=== PATIENT | male | born 1950 | race Caucasian/White ===

== ENCOUNTER → 2018-01-07 11:32 | Outpatient (CLI) | payer MEDICARE, SELFPAY ==
[2018-01-07 12:11] LABS: PSA,Total - Annual Screen 2.73 ng/mL (0.00-4.00)
== END ==
PROVIDERS: Family Provider Internal Medicine; PCP Internal Medicine; Visit Provider Urology
DX: Z12.5 Encounter for screening for malignant neoplasm of prostate (principal)
CPT/HCPCS: 36415; 84153; G0103

== ENCOUNTER → 2018-02-18 08:24 | Outpatient (CLI) | payer MEDICARE, SELFPAY | PROVIDERS: Family Provider Internal Medicine; PCP Internal Medicine; Visit Provider Urology | DX: R82.99 Other abnormal findings in urine (principal) | CPT/HCPCS: 87086; 87088 ==

== ENCOUNTER → 2019-02-05 09:47 | Outpatient (CLI) | payer MEDICARE, SELFPAY ==
[2019-02-05 11:33] LABS: PSA,Total - Annual Screen 4.06 ng/mL (0.00-4.00)
== END ==
PROVIDERS: Family Provider Internal Medicine; PCP Internal Medicine; Referring Provider Urology; Visit Provider Urology
DX: Z12.5 Encounter for screening for malignant neoplasm of prostate (principal)
CPT/HCPCS: 36415; 84153; G0103

== ENCOUNTER → 2019-08-17 15:09 | Outpatient (CLI) | payer MEDICARE, SELFPAY ==
[2015-09-22 06:12] VITALS: BMI 28.3
[2019-08-17 16:26] LABS: PSA,Total- Diagnostic 5.16 ng/mL (0.0-4.0)
== END ==
PROVIDERS: PCP Internal Medicine; Referring Provider Urology; Visit Provider Urology
DX: R97.20 Elevated prostate specific antigen [PSA] (principal)
CPT/HCPCS: 36415; 84153

== ENCOUNTER → 2019-10-20 08:55 | Outpatient (CLI) | payer MEDICARE, SELFPAY ==
[2015-09-22 06:12] VITALS: BMI 28.3
[2019-10-20 09:55] LABS: PSA,Total- Diagnostic 4.85 ng/mL (0.0-4.0)
== END ==
PROVIDERS: PCP Internal Medicine; Visit Provider Urology
DX: R97.20 Elevated prostate specific antigen [PSA] (principal)
CPT/HCPCS: 36415; 84153

== ENCOUNTER → 2020-05-05 16:00 | Outpatient (CLI) | payer MEDICARE, SELFPAY ==
[2015-09-22 06:12] VITALS: BMI 28.3
[2020-05-05 16:58] LABS: PSA,Total - Annual Screen 4.88 ng/mL (0.00-4.00)
== END ==
PROVIDERS: PCP Internal Medicine; Referring Provider Urology; Visit Provider Urology
DX: R97.20 Elevated prostate specific antigen [PSA] (principal)
CPT/HCPCS: 36415; 84153; G0103

== ENCOUNTER 2020-09-27 16:34 | Emergency (ER) | payer MEDICARE, SELFPAY ==
[2020-09-27 16:35] VITALS: BP 139/87; PULSE 86; RESP 18; TEMP 37.3; O2SAT 97; BMI 32.5
[2020-09-27 17:06] VITALS: BP 139/87; PULSE 86; RESP 18; TEMP 37.3; O2SAT 97
[2020-09-27 17:07] LABS: Absolute Lymphocyte Count 0.64 X10^3/uL (0.83-4.51); Absolute Neutrophil Count 13.7 X10^3/uL (2.0-7.7); Basophil# 0.04 X10^3/uL; Basophil% 0.3 % (0-1); Eosinophil# 0.04 X10^3/uL; Eosinophils% 0.3 % (0-5); Hemoglobin 14.7 g/dL (13.0-16.5); Lymphocyte # 0.64 X10^3/ul (4.0); Lymphocyte % 4.1 % (19-41); Mean Corp Hgb Conc 33.4 g/dL (32-36); Mean Corpuscular Hgb 31.3 pg (27.0-32.0); Mean Corpuscular Volume 93.8 fL (80-94); Mean Platelet Vol. 9.4 fl (6.2-12.0); Monocyte% 8.2 % (0-10); NRBC Flagged by Analyzer 0 % (0-5); Neutrophil % 86.7 % (47-70); Platelet Count 146 K/mm3 (150-450); RBC Distribution Width CV 12.9 % (11.6-14.6); RBC Distribution Width SD 44.5 fl (35.1-43.9); Red Blood Count 4.69 M/mm3 (4.6-6.2); White Blood Count 15.8 K/mm3 (4.4-11.0)
[2020-09-27] MEDS: 0.9% Normal Saline 1,000 ML 150 ML IV (17:17)
[2020-09-27] MEDS: 0.9% Normal Saline 1,000 ML 1000 ML IV (17:17)
--- NOTE | 2020-09-27 17:19 | ED.VIS.GEN ---
History of Present Illness Chief Complaint: Complaint Informant: Patient Onset: Days Maximum Severity: Mild Narrative: Patient complains of urinary frequency for the last 3 to 4 days, he has history of same related prostate disorder he is on Flomax other meds to help his urinary stream he reports he is frequently urinating he has had no fever no cough no back pain, has been seen by urology for this he has been told he has an enlarged prostate as has been decided to treat him conservatively and to try to avoid surgery. He has no back pain fever URI symptoms no coronavirus exposures, at times when he is had this is been related to UTI he is usually treated either Cipro or Augmentin, as he recalls, he is never required for the catheter or had urinary retention he is seen by [facility] Past Medical History - Allergies and Home Meds Allergies/Adverse Reactions: Allergies codeine Adverse Reaction (Verified 09/27/20 16:36) Nausea/Vom/Diarrhea Primary Care Physician: Claire Guo MD [Primary Care Provider] - Past Medical History: - - Includes as above Smoking Status: Former smoker Physical Exam Vital Signs/Narrative: Vital Signs Temp Pulse Resp BP Pulse Ox 09/27/20 17:06 99.1 F 86 18 139/87 H 97 09/27/20 16:35 99.1 F 86 18 139/87 H 97 General: Well nourished, Well developed, No Acute Distress Head: Normocephalic, Atraumatic Eyes: Perrl, EOMI ENT: Moist mucous membranes, No rhinorrhea Neck: Supple, Nontender Cardiovascular: Regular rate, Regular rhythm, No murmurs Respiratory: No distress, CTA bilaterally, Chest nontender Abdomen: Soft, Nontender, Nondistended, Normal bowel sounds Back: Nontender, Normal Inspection Extremities: Nontender, No edema Skin: Normal color, No rash Neurological: Alert, Oriented x3, Cranial nerves II-XII grossly intact, Normal Strength, Normal Sensation Psychological: Normal affect, Normal Mood Diagnostic/Tx/Re-eval - Medical Decision Making Patient's abdomen is very soft and nontender his exam shows no areas of pain or lesions or drainage his back is unremarkable clinically looks well given all the above ED evaluation UA post void residual bladder scan, your urine culture labs Patient's ED screening evaluation shows a white count of 15 UA that shows signs of UTI urine culture sent, no clinical signs of retention discussed Neves catheter with the patient he does not wish to proceed with that as he is never required with the past we discussed inpatient versus outpatient management he wants to go home he was given 1 g Rocephin after urine cultures obtained, he will be started on Augmentin she has had before for this condition he will follow-up with his urologist and family physician return for change in symptoms, the patient indicates he is eating and drinking well executing all of his daily activities and just has the constant urinary frequency will also provide Pyridium, he has no signs of systemic toxicity Home stable declined admission Final impression urinary tract infection ED Disposition - Plan for ED Patient: Diagnosis: UTI (urinary tract infection) Instructions: ED Bladder Infection, Male (Adult) Prescriptions: Amox/Clavulanate Tablet [Augmentin Tablet] 875 mg PO Q12H #20 tab Prescription Printed Phenazopyridine HCl [Pyridium] 200 mg PO BID PRN PRN #10 tablet PRN Reason: Pain Prescription Printed Referrals: Claire Guo MD [Primary Care Provider] - Anastacio Wallis MD [STAFF PHYSICIAN] -
[2020-09-27 17:32] LABS: Anion Gap 4 (5-15); BUN 16 mg/dL (7-18); BUN/Creat Ratio 11.4 RATIO (10-20); Chloride 107 mmol/L (98-107); EST Glomerular Filtration Rate 53 mL/min (>60); Est Glom Filt Rate - Afr Amer 64 mL/min (>60); Glucose 101 mg/dL (74-106); Potassium 3.9 mmol/L (3.5-5.1); Sodium Level 139 mmol/L (136-145)
[2020-09-27 18:00] VITALS: BP 135/86; PULSE 76; RESP 15; TEMP 37.5; O2SAT 96
[2020-09-27 18:31] LABS: Mucous, Urine 0 SEEN /hpf (<or=2+)
[2020-09-27 18:41] LABS: Color, Urine Yellow (Yellow); Glucose, Dipstick Normal (Normal); Ketone-Dipstick Negative (Negative); Leukocyte Esterase-Dipstick 500 /ul (Negative); Nitrite-Dipstick Positive (Negative); Occult Blood-Urine 10 /ul (Negative); Protein-Dipstick Negative (Negative); Specific Gravity, Urine 1.015 (1.002-1.030); Urine Bilirubin Dipstick Negative (Negative); Urine Clarity Sl. Cloudy (Clear); Urine Urobilinogen Normal (Normal)
[2020-09-27] MEDS: Ceftriaxone 1 GM/50 ML BAG IV (18:45)
[2020-09-27 19:00] LABS: Amorphous Sediment 1+ URATE; Bacteria 1+ /hpf (None Seen); Red Blood Cells-Urine 0-5 SEEN /hpf (0-5); Squamous Epithelial Cells - UA 0-5 SEEN /hpf (0-5); White Blood Cells 25-50 SEEN /hpf (0-5)
[2020-09-27] MEDS: Amox/Clavulanate 875 MG Tablet PO (19:39)
== END 2020-09-27 19:43 | disposition home or self-care (01) ==
PROVIDERS: Emergency Provider Emergency Medicine; PCP Internal Medicine
DX: N39.0 Urinary tract infection, site not specified (principal); Z87.891 Personal history of nicotine dependence; Z88.5 Allergy status to narcotic agent
CPT/HCPCS: 80048; 81001; 85025; 87077; 87086; 87088; 87186; 99283; J7030; A4216

== ENCOUNTER → 2021-10-26 | Outpatient (CLI) | payer MEDICARE, SELFPAY ==
[2021-10-26 10:07] LABS: PSA,Total- Diagnostic 2.51 ng/mL (0.0-4.0)
== END | disposition home or self-care (01) ==
PROVIDERS: PCP Internal Medicine; Referring Provider Urology; Visit Provider Urology
DX: N40.1 Benign prostatic hyperplasia with lower urinary tract symptoms (principal)
CPT/HCPCS: 36415; 84153

== ENCOUNTER 2022-02-22 18:12 | Emergency (ER) | payer MEDICARE, SELFPAY ==
[2022-02-22 18:14] VITALS: BP 149/87; PULSE 59; RESP 14; TEMP 36.4; O2SAT 98; BMI 31.0
--- NOTE | 2022-02-22 19:07 | EX.ED.UPPERE ---
HPI History of Present Illness Chief Complaint: Upper Extremity Injury Detail of Chief Complaint: Crush injury left little finger Informant: patient Occured/Mechanism Mechanism/Context: Yes injury and Yes blunt trauma Onset/Context/Timing Onset: Today (1699) Context: Sudden Onset Timing: Continuous Quality of Pain: Dull and Aching Location: Left little finger Current Severity: Mild Maximum Severity: Moderate Worsened by: Palpation Relieved by: Rest Associated Symptoms Associated Symptoms: Negative for Parasthesia, Weakness or Loss of Funtion Narrative Narrative: Patient is a 71-year-old lxlbg-vnzh-sezvadgy male who presents with crush injury to his left little finger. Tetanus is unknown. He denies paresthesia, anesthesia or motor weakness. He is not on an anticoagulant. Tetanus Immunization: Unknown Prior similar symptoms: No Recent Illness/Hospitalization: No [facility] Medical History Hyperlipemia Sleep apnea Home Medications methylphenidate HCl 20 mg tablet (Ritalin) 20 mg PO DAILY 09/03/15 [History Last Taken Unknown] uqmcqxqpgorf-ahrzxucn-gscdtt tablet (Multivitamin 50 Plus tablet) 1 ea PO DAILY 09/03/15 [History Last Taken Unknown] tamsulosin 0.4 mg capsule 0.4 mg PO DAILY 09/03/15 [History Last Taken Unknown] cetirizine 10 mg tablet (Zyrtec) 10 mg PO DAILY 02/22/22 [History Last Taken Unknown] ferrous sulfate 325 mg (65 mg iron) tablet (iron) 325 mg PO DAILY 02/22/22 [History Last Taken Unknown] rosuvastatin 5 mg tablet 5 mg PO DAILY 02/22/22 [History Last Taken Unknown] Allergy/AdvReac Type Severity Reaction Status Date / Time codeine AdvReac Nausea/Vom/ Verified 02/22/22 18:13 Diarrhea Surgical History History of cholecystectomy History of tonsillectomy Social History (Updated 02/22/22 @ 19:[address] Luis Horner MD) household members: spouse Smoking Status: Never smoker substance use type: does not use ROS ROS ED Musculoskeletal Musculoskeletal: Denies back pain, myalgias or neck pain Integumentary Reports other Details: Laceration ulnar side of nail over the distal phalanx left little finger ; Denies Abrasions or rash Neurologic Neurologic: Denies paresthesias or weakness Hematologic/Lymphatic Hematologic/Lymphatic: Denies easy bleeding or easy bruising EXAM Physical Exam Const Vital Signs: 02/22/22 18:14 Temperature 97.6 F L Temperature Source Temporal Pulse Rate 59 L Respiratory Rate 14 Blood Pressure 149/87 H Blood Pressure Mean 107 Pulse Ox 98 Oxygen Delivery Method Room Air Positive well nourished and well developed General Appearance ED: well developed and NAD; Negative for cyanotic or diaphoretic HEENT Reports moist mucous membranes normocephalic and atraumatic Eyes PERRL and EOMs intact bilaterally Resp normal respiratory effort Cardio regular rate and regular rhythm Extremity Extremity Narrative: There is a 2 cm laceration ulnar side of the nail on the dorsal surface of the left little finger. The extensor minimized tendons intact. The flexor digitorum superficialis and flexor digitorum profundus are intact. Patient does have a subungual hematoma with spontaneous drainage. Cap refill is normal. Sensation is normal. Neuro oriented x3 and CN's II-XII intact bilaterally Neuro Narrative: Median, radial and ulnar function intact. Sensorium / Orientation: alert Skin Skin Narrative: Laceration as previously described MDM MDM MDM Narrative Medical decision making narrative: Will obtain x-ray to rule out fracture. Tetanus was updated. Repair of the laceration after x-ray has been obtained and available for review Radiography Diagnostic Testing: Three-view x-ray of the left index finger was independently reviewed and interpreted by me as negative for fracture or foreign body. Procedures Other Procedures Procedure(s): Laceration repair: Patient's digit was anesthetized by digital block. 3 cc of 1% lidocaine without epinephrine was infiltrated. The wound was irrigated with 200 cc of normal saline. Using 5-0 Ethilon 3 simple interrupted sutures were placed with good cosmesis hemostasis. Patient was discharged home with appropriate home-going instructions. Discharge Plan Triage Chief Complaint: Upper Extremity Injury ED Provider: Luis Horner Dx/Rx/DC Orders Clinical Impression: Laceration of left little finger, Subungual hematoma of fingernail, Crushing injury of finger of left hand Instructions: Subungual Hematoma, ED Laceration, Hand: All Closures Prescriptions: No Action methylphenidate HCl [Ritalin] 20 MG tablet 20 mg PO DAILY tamsulosin 0.4 MG capsule 0.4 mg PO DAILY Multivitamin 50 Plus 1 EACH tablet 1 ea PO DAILY cetirizine [Zyrtec] 10 mg Tablet 10 mg PO DAILY ferrous sulfate [iron] 325 mg (65 mg iron) Tablet 325 mg PO DAILY rosuvastatin 5 mg tablet 5 mg PO DAILY Primary Care Provider: Claire Guo Referrals: Claire Guo MD [Primary Care Provider] - 10 Day for suture removal Disposition Disposition: Home, Self Care
--- NOTE | 2022-02-22 19:10 | RAD_ITS ---
EXAM: XR LEFT FINGERS, 2 OR MORE VIEWS CLINICAL INDICATION: Injury/Pain -- Little finger TECHNIQUE: Frontal, lateral and oblique views of the fingers of the left hand. This report was created using Related Content Database (RCDb) report LogRhythm technology. COMPARISON: None. FINDINGS: BONES/JOINTS: Unremarkable. No acute fracture. No subluxation. Normal alignment. Preservation of the joint space. No sclerotic or destructive changes observed. SOFT TISSUES: Unremarkable. No soft tissue swelling or gas. No radiopaque foreign body. RAD/Finger(s) Min 2 Views IMPRESSION: Negative x-rays of the visualized left fingers. Electronically Signed: Neel Fontaine MD at 19:38 EDT ,
[2022-02-22] MEDS: Diphth,Pertuss(Acell),Tet Vac 0.5 ML Vial IM (19:31)
[2022-02-22] MEDS: Lidocaine 1% (20 ml mdv) 20 ML Vial INFILT (20:09)
== END 2022-02-22 20:28 | disposition home or self-care (01) ==
PROVIDERS: Emergency Provider Emergency Medicine; PCP Internal Medicine; Visit Provider Emergency Medicine
DX: S61.217A Laceration without foreign body of left little finger without damage to nail, initial encounter (principal); E78.5 Hyperlipidemia, unspecified; S60.10XA Contusion of unspecified finger with damage to nail, initial encounter; W23.0XXA Caught, crushed, jammed, or pinched between moving objects, initial encounter; Z23 Encounter for immunization
CPT/HCPCS: 12001; 73140; 90471; 90715; 99283

== ENCOUNTER → 2022-10-29 | Outpatient (CLI) | payer MEDICARE, SELFPAY | END | disposition home or self-care (01) | PROVIDERS: PCP Internal Medicine; Referring Provider Urology; Visit Provider Urology | DX: Z12.5 Encounter for screening for malignant neoplasm of prostate (principal); N30.00 Acute cystitis without hematuria; N40.1 Benign prostatic hyperplasia with lower urinary tract symptoms | CPT/HCPCS: 36415; 84153 ==

== ENCOUNTER → 2023-11-14 | Outpatient (CLI) | payer MEDICARE, SELFPAY ==
[2023-11-14 10:21] LABS: PSA,Total- Diagnostic 2.94 ng/mL (0.0-4.0)
== END | disposition home or self-care (01) ==
PROVIDERS: PCP Internal Medicine; Visit Provider Urology
DX: R97.20 Elevated prostate specific antigen [PSA] (principal)
CPT/HCPCS: 36415; 84153

== ENCOUNTER 2024-01-30 19:17 | Emergency (ER) | payer MEDICARE, SELFPAY ==
[2024-01-30 19:17] VITALS: BP 121/81; PULSE 126; RESP 18; TEMP 38.4; O2SAT 99; BMI 29.5
--- NOTE | 2024-01-30 19:43 | EDS_ITS ---
HPI History of Present Illness Chief Complaint: General Illness [facility] Medical History Hyperlipemia Sleep apnea Home Medications ?Medication ?Instructions ?Recorded ?Last Taken ?Type wkuielxhnayz-pdozgxzy-gpvcsr 1 ea PO DAILY 09/03/15 Unknown History tablet (Multivitamin 50 Plus tablet) tamsulosin 0.4 mg capsule 0.4 mg PO DAILY 09/03/15 Unknown History cetirizine 10 mg tablet (Zyrtec) 10 mg PO DAILY 02/22/22 Unknown History ferrous sulfate 325 mg (65 mg 325 mg PO DAILY 02/22/22 Unknown History iron) tablet (iron) rosuvastatin 5 mg tablet 5 mg PO DAILY 02/22/22 Unknown History doxycycline hyclate 100 mg capsule 100 mg PO BID #20 caps 01/30/24 Unknown Rx methylphenidate HCl 10 mg tablet 10 mg PO DAILY 01/30/24 Unknown History methylphenidate HCl 20 mg 20 mg PO DAILY 01/30/24 Unknown History tablet,extended release Allergy/AdvReac Type Severity Reaction Status Date / Time codeine AdvReac Nausea/Vom/ Verified 01/30/24 19:19 Diarrhea Surgical History History of cholecystectomy History of tonsillectomy Social History (Updated 02/22/22 @ 19:[address] Luis Horner MD) household members: spouse Smoking Status: Never smoker substance use type: does not use EXAM Physical Exam Const Vital Signs: 01/30/24 19:17 01/30/24 19:44 01/30/24 19:44 Temperature 101.1 F H Temperature Source Oral Pulse Rate 126 H Respiratory Rate 18 Respiratory Effort Normal Non-Labored Respiratory Pattern Normal Blood Pressure 121/81 H Blood Pressure Mean 94 Pulse Ox 99 Oxygen Delivery Method Room Air Room Air 01/30/24 20:52 01/30/24 21:11 Temperature Temperature Source Pulse Rate 81 81 Respiratory Rate 18 18 Respiratory Effort Respiratory Pattern Blood Pressure Blood Pressure Mean Pulse Ox 95 97 Oxygen Delivery Method Room Air Room Air MDM MDM MDM Narrative Medical decision making narrative: HISTORY OF PRESENT ILLNESS: 73-year-old male presents with fever chills cough and body ache since Tuesday. Notes he took Tylenol at 3 PM. Notes today he was having trouble getting around secondary to dyspnea. denies sick contacts. Notes he is fully vaccinated gets COVID-19. The patient denies recent surgery in the last 4 weeks or immobilization in the last 3 days, denies previous diagnosis of DVT or PE, hemoptysis, unilateral leg swelling or malignancy with treatment the last 6 months or palliative. No estrogen use noted. No chest pain endorsed. REVIEW OF SYSTEMS: Pertinent positives: Cough, fever, chills, body aches Pertinent negatives: Chest pain, leg swelling PHYSICAL EXAM: Nursing triage notes reviewed, Vital signs reviewed Constitutional: please see mdm HENT: MMM Eyes: Pupils equal round and reactive to light, Extraocular muscles intact Neck: No stridor, no JVD, full neck ROM Lungs: Clear to auscultation, No wheezing or rales. No increased work of breathing, no conversational dyspnea, no accessory muscle use, no nasal flaring. No respiratory distress noted Heart: Regular rate and rhythm, No murmurs, No rubs and No gallops, 2+ distal pulses (radial, femoral, posterior tibial) in all extremities Abdomen: Soft, there is no tenderness, rigidity, rebound or guarding, no obvious peritoneal signs, no palpable pulsatile abdominal masses, no auscultated abdominal bruit : No CVAT Extremities: No edema Neuro: No focal neurological deficits, cranial nerves II through XII intact, 5/5 strength in all extremities. Intact sensation to light touch in all extremities, 2+ reflexes bilateral patella tendons. Normal gait. No ataxia. Skin: No rash or lesions noted MEDICAL DECISION MAKING: Chief Complaint: Cough, fever, chills, body aches External records reviewed: Reviewed prior urine culture grew E. coli in 2020 Factors affecting care: Hyperlipidemia, BPH Consults: none [facility] Narrative: Patient was initially tachycardic, febrile, normotensive. Patient at rest was borderline hypoxic with a pulse ox of 92%. Without focal exam consolidative process. I considered the following differential diagnosis: Sepsis, UTI, pneumonia, COVID Sepsis workup initiated including lactate, blood and urine cultures. Withholding antibiotics at this point given suspicion for COVID. Gave 1 L normal saline. Treat the patient's fever with Tylenol (1000 mg), 50 mg IV Toradol ALL IMAGES (IF OBTAINED) HAVE BEEN PERSONALLY REVIEWED AND INTERPRETED BY MYSELF. CBC with leukocytosis suggestive of systemic inflammation, no anemia or thrombocytopenia No coagulopathy noted Chest x-ray reviewed myself shows evidence of left lower lobe pneumonia Lactate is wnl indicating no end-organ hypoperfusion and/or hypoxia. Urinalysis shows no evidence of urinary inflammation suggestive of UTI BMP with baseline CKD, mild hyponatremia, no anion gap or electrolyte disturbances noted EKG with sinus tachycardia rate of 106, normal axis, normal intervals, no STEMI The etiology patient complaint is likely pneumonia. Patient ambulated here in the emergency department significant hypoxia. He is appropriate for discharge home with oral doxycycline. Strict return precautions were discussed. The patient and/or family, caregivers express understanding. The patient and/or family, caregivers agrees with the plan. Shared decision making: I will have a discussion with the patient and or visitors regarding risk/benefits of further testing or admission. They will be made aware of of the risk/benefits inherent in this decision they will be given the opportunity to voice understanding. Total critical care time today provided was at least 0 minutes. This excludes separately billable procedures. Critical care time (if documented) is secondary to the patient having high probability of clinically significant/life threatening deterioration in the patient's condition which required my urgent in tervention. Impression: 1. Cough 2. Community acquired pneumonia 3. CKD Dispo: Discharge home This note was generated with [employer] dictation software. It may contain incorrect words, spelling, and punctuation that were not noted in review of the chart prior to signing. Lab Data Labs: Laboratory Results - last 24 hr 01/30/24 01/30/24 20:05 21:40 WBC 12.4 H RBC 4.80 Hgb 14.9 Hct 43.0 MCV 89.6 MCH 31.0 MCHC 34.7 RDW Std Deviation 40.3 RDW Coeff of David 12.3 Plt Count 154 MPV 9.2 Immature Gran % (Auto) 0.500 Neut % (Auto) 86.9 H Lymph % (Auto) 2.8 L Williams % (Auto) 9.5 Eos % (Auto) 0.1 Baso % (Auto) 0.2 Absolute Neuts (auto) 10.8 H Absolute Lymphs (auto) 0.35 L Nucleated RBC % 0 Differential Comment SEE COMMENT Platelet Estimate ADEQUATE RBC Morphology N CHROM Anisocytosis RARE Macrocytosis RARE PT 14.6 INR 1.1 APTT 35.6 Sodium 135 L Potassium 3.7 Chloride 103 Carbon Dioxide 24.0 Anion Gap 8 BUN 20 H Creatinine 1.47 H Estim Creat Clear Calc 48.35 Est GFR (MDRD) Af Amer 60 Est GFR (MDRD) Non-Af 50 L BUN/Creatinine Ratio 13.6 Glucose 152 H Lactic Acid 1.7 Calcium 8.5 Total Bilirubin 0.80 AST 22 ALT 25 Alkaline Phosphatase 71 Total Protein 7.0 Albumin 2.7 L Globulin 4.3 H Albumin/Globulin Ratio 0.6 L Urine Color Yellow Urine Clarity Clear Urine pH 5.0 Ur Specific [place] 1.015 Urine Protein 100 H Urine Glucose (UA) Normal Urine Ketones 5 H Urine Occult Blood 25 H Urine Nitrite Negative Urine Bilirubin 1 H Urine Urobilinogen 4 H Ur Leukocyte Esterase 25 H Urine RBC 0-5 SEEN Urine WBC 0-5 SEEN Ur Squamous Epith Cells 0-5 SEEN Amorphous Sediment 1+ URATE Urine Bacteria 0 SEEN Hyaline Casts 0-5 SEEN Urine Mucus 3+ Radiography Diagnostic Testing: Clinical Impression(s) from Imaging Studies Chest X-Ray 01/30/24 20:11 IMPRESSION: Streaky opacities in the left lower lung may represent atelectasis versus infection. Electronically Signed: Blair Guzman MD at 21:19 EDT , Discharge Plan Triage Chief Complaint: General Illness ED Provider: Anival Avila Dx/Rx/DC Orders Prescriptions: New doxycycline hyclate 100 mg capsule 100 mg PO BID Qty: 20 0RF No Action tamsulosin 0.4 MG capsule 0.4 mg PO DAILY Multivitamin 50 Plus 1 EACH tablet 1 ea PO DAILY cetirizine [Zyrtec] 10 mg Tablet 10 mg PO DAILY ferrous sulfate [iron] 325 mg (65 mg iron) Tablet 325 mg PO DAILY rosuvastatin 5 mg tablet 5 mg PO DAILY methylphenidate HCl 10 mg tablet 10 mg PO DAILY Patient Comments: TAKE 1 TABLET BY MOUTH EVERY DAY MIDDAY methylphenidate HCl 20 mg tablet extended release 20 mg PO DAILY Patient Comments: TAKE 1 TABLET BY MOUTH EVERY DAY Primary Care Provider: Claire Guo Referrals: Claire Guo MD [Primary Care Provider] - Activity Restrictions/Additional Instructions: Thank you for trusting us with your care today! Please take Tylenol (2 pills, 650 mg), ibuprofen (2 pills, 400 mg) every 6 hours as needed for pain and fever control. Please take doxycycline as prescribed. Complete entire course. Please return to the emergency department if your symptoms change or worsen. Please follow with your primary care physician for further outpatient evaluation and management. Print Language: [place] Disposition Disposition: Home, Self Care
--- NOTE | 2024-01-30 19:44 | EKG12_ITS ---
Test Reason : DYSRHYTHMIA Blood Pressure : / mmHG Vent. Rate : 106 BPM Atrial Rate : 106 BPM P-R Int : 172 ms QRS Dur : 072 ms QT Int : 316 ms P-R-T Axes : -14 -04 054 degrees QTc Int : 419 ms Sinus tachycardia Otherwise normal ECG When compared with ECG of 16-DEC-2000 15:04, Vent. rate has increased BY 57 BPM Questionable change in QRS axis Nonspecific T wave abnormality now evident in Anterior leads Confirmed by Low French ([id number]), editor sound TELLO TOMPKINS ([id number]) on 02/02/2024 9:15:38 AM Referred By: Confirmed By:Low French
[2024-01-30] MEDS: Ketorolac 15 MG/ML Vial IV (20:00)
[2024-01-30] MEDS: Acetaminophen 500 MG Tablet 1000 MG PO (20:00)
[2024-01-30] MEDS: 0.9% Normal Saline (1000mL) 1,000 ML 999 ML IV (20:00)
--- NOTE | 2024-01-30 20:11 | RAD_ITS ---
INDICATION: cough EXAMINATION/TECHNIQUE: X-RAY - XR Chest 1 View COMPARISON: None. FINDINGS: Streaky opacities in the left lower lung. Tortuous and calcified thoracic aorta. The heart is not enlarged. No pleural effusion or pneumothorax. Degenerative changes of the thoracic spine. RAD/Chest 1 View (Portable) IMPRESSION: Streaky opacities in the left lower lung may represent atelectasis versus infection. Electronically Signed: Blair Guzman MD at 21:19 EDT ,
[2024-01-30 20:15] LABS: Absolute Lymphocyte Count 0.35 X10^3/uL (0.83-4.51); Absolute Neutrophil Count 10.8 X10^3/uL (2.0-7.7); Basophil# 0.03 X10^3/uL; Basophil% 0.2 % (0-1); Eosinophil# 0.01 X10^3/uL; Eosinophils% 0.1 % (0-5); Hemoglobin 14.9 g/dL (13.0-16.5); Lymphocyte # 0.35 X10^3/ul (0.83-4.51); Lymphocyte % 2.8 % (19-41); Mean Corp Hgb Conc 34.7 g/dL (32-36); Mean Corpuscular Volume 89.6 fL (80-94); Mean Platelet Vol. 9.2 fl (6.2-12.0); Monocyte# 1.17 X10^3/uL; Monocyte% 9.5 % (0-10); NRBC Flagged by Analyzer 0 % (0-5); Neutrophil # 10.76 X10^3/uL (2.7-7.7); Neutrophil % 86.9 % (47-70); POSITIVE DIFFERENTIAL YES; Platelet Count 154 K/mm3 (150-450); RBC Distribution Width CV 12.3 % (11.6-14.6); RBC Distribution Width SD 40.3 fl (35.1-43.9); White Blood Count 12.4 K/mm3 (4.4-11.0)
[2024-01-30 20:22] LABS: International Normalized Ratio 1.1; Prothrombin Time (Protime)PT. 14.6 SECONDS (11.7-14.9)
[2024-01-30 20:23] LABS: Differential Indicated SCAN CRITERIA MET; Partial Thromboplast Time 35.6 Seconds (24.1-36.2)
[2024-01-30 20:31] LABS: ALB/GLOB Ratio 0.6 RATIO (0.9-2.4); AST(SGOT) 22 U/L (15-37); Alanine Aminotransfer ALT/SGPT 25 U/L (16-61); Albumin, Serum 2.7 g/dL (3.2-5.0); Alkaline Phosphatase 71 U/L (45-117); Anion Gap 8 (5-15); BUN 20 mg/dL (7-18); BUN/Creat Ratio 13.6 RATIO (10-20); Calcium,Total 8.5 mg/dL (8.5-10.1); Chloride 103 mmol/L (98-107); Creatinine, Serum 1.47 mg/dL (0.70-1.30); EST Glomerular Filtration Rate 50 mL/min (>60); Est Glom Filt Rate - Afr Amer 60 mL/min (>60); Estimated Creatinine Clearance 48.35 ml/min; Globulin 4.3 g/dL (2.2-4.2); Glucose 152 mg/dL (74-106); Potassium 3.7 mmol/L (3.5-5.1); Sodium Level 135 mmol/L (136-145)
[2024-01-30 20:42] LABS: Lactic Acid 1.7 mmol/L (0.4-1.9)
[2024-01-30 20:52] VITALS: PULSE 81; RESP 18; O2SAT 95
[2024-01-30 20:58] LABS: Platelet Estimate ADEQUATE (ADEQ); Red Cell Morphology N CHROM NORMAL (NORM C&C)
[2024-01-30 20:59] LABS: Anisocytosis RARE; Macrocytosis RARE
[2024-01-30 21:11] VITALS: PULSE 81; RESP 18; O2SAT 97
[2024-01-30 21:48] LABS: Bacteria 0 SEEN /hpf (None Seen)
[2024-01-30 21:54] LABS: Color, Urine Yellow (Yellow); Glucose, Dipstick Normal (Normal); Ketone-Dipstick 5 mg/dl (Negative); Leukocyte Esterase-Dipstick 25 /ul (Negative); Nitrite-Dipstick Negative (Negative); Occult Blood-Urine 25 /ul (Negative); Protein-Dipstick 100 mg/dl (Negative); Specific Gravity, Urine 1.015 (1.002-1.030); Urine Clarity Clear (Clear); Urine Urobilinogen 4 mg/dl (Normal)
[2024-01-30 22:00] VITALS: O2SAT 96
[2024-01-30 22:07] LABS: Urine Bilirubin Dipstick 1 mg/dL (Negative)
[2024-01-30 22:08] LABS: Amorphous Sediment 1+ URATE; Hyaline Cast 0-5 SEEN /lpf (0-5); Mucous, Urine 3+ /hpf (<or=2+); Red Blood Cells-Urine 0-5 SEEN /hpf (0-5); Squamous Epithelial Cells - UA 0-5 SEEN /hpf (0-5); White Blood Cells 0-5 SEEN /hpf (0-5)
[2024-01-30] MEDS: Doxycycline 100 MG CAPSULE PO (22:33)
[2024-01-30 22:38] VITALS: BP 128/73; PULSE 76; RESP 18; TEMP 36.9; O2SAT 95
== END 2024-01-30 22:39 | disposition home or self-care (01) ==
PROVIDERS: Emergency Provider Emergency Medicine; PCP Internal Medicine; Visit Provider Emergency Medicine
DX: J18.9 Pneumonia, unspecified organism (principal); Z11.52 Encounter for screening for COVID-19; N18.9 Chronic kidney disease, unspecified; E78.5 Hyperlipidemia, unspecified; R09.02 Hypoxemia; N40.0 Benign prostatic hyperplasia without lower urinary tract symptoms; Z79.899 Other long term (current) drug therapy
CPT/HCPCS: 71045; 80053; 81001; 83605; 85025; 85610; 85730; 87040; 87086; 87088; 87631; 93005; 96361; 96374; 99284; A4216

== ENCOUNTER 2024-04-17 13:13 | Emergency (ER) | payer MEDICARE, SELFPAY ==
[2024-04-17 13:13] VITALS: BP 135/84; PULSE 70; RESP 16; TEMP 36.3; O2SAT 96; BMI 32.5
--- NOTE | 2024-04-17 15:28 | ED.VIS.BACK ---
HPI History of Present Illness Chief Complaint: Back Narrative Narrative: 73-year-old male who denies significant past medical history except for pneumonia few months ago presents with right sided back pain at his lower ribs are just below that he has had for the last few months. He states has been progressively worse, over the last few days, he admits that he has been lifting some heavy things. He gets sharp pain with movement. He denies any fevers or chills, no cough, no nausea or vomiting, no dysuria or hematuria. No problems with bowel movements. Its only on the right side of his mid thoracic back. Of note, he states he saw the nurse practitioner at his primary care provider's office yesterday who thought that it was probably more muscular in nature. She prescribed him a muscle relaxer that he has not taken yet. He has been taking acetaminophen with mild relief of his symptoms, but he thinks it wore off earlier today. [facility] Medical History Sleep apnea Hyperlipemia Home Medications ?Medication ?Instructions ?Recorded ?Last Taken ?Type [id number] 1 ea PO DAILY 09/03/15 Unknown History tablet (Multivitamin 50 Plus tablet) tamsulosin 0.4 mg capsule 0.4 mg PO DAILY 09/03/15 Unknown History cetirizine 10 mg tablet (Zyrtec) 10 mg PO DAILY 02/22/22 Unknown History ferrous sulfate 325 mg (65 mg 325 mg PO DAILY 02/22/22 Unknown History iron) tablet (iron) rosuvastatin 5 mg tablet 5 mg PO DAILY 02/22/22 Unknown History doxycycline hyclate 100 mg capsule 100 mg PO BID #20 caps 01/30/24 Unknown Rx methylphenidate HCl 10 mg tablet 10 mg PO DAILY 01/30/24 Unknown History methylphenidate HCl 20 mg 20 mg PO DAILY 01/30/24 Unknown History tablet,extended release Allergy/AdvReac Type Severity Reaction Status Date / Time codeine AdvReac Nausea/Vom/ Verified 04/17/24 13:13 Diarrhea Surgical History History of tonsillectomy History of cholecystectomy Social History household members: spouse Smoking Status: Never smoker substance use type: does not use ROS ROS ED ROS Narrative Constitutional: No fever, no chills. HEENT: No sore throat. No neck pain. No loss of vision. No rhinorrhea. Cardiovascular: No chest pain. No palpitations. No pedal edema. Respiratory: No cough, no shortness of breath. Right-sided lower rib pain, lower portion of thoracic back. Abdominal: No abdominal pain. No nausea. No vomiting. No problems with bowel movements. Genitourinary: No dysuria. No hematuria. Musculoskeletal: No myalgias. No arthralgias. Neurologic: No headaches. No dizziness. No lightheadedness. Skin: No rash. No change in color. EXAM Physical Exam Narrative Exam Narrative: Afebrile. Vital signs noted. Regular rate and rhythm. Lungs are clear to auscultation bilaterally. Abdomen soft nontender with normoactive bowel sounds. Neurological examination is nonfocal and nonlateralizing. No CVA tenderness to percussion, right. There is mild tenderness palpation on the lower ribs and intercostal he on the right side. No vertebral point tenderness or bony step-off. Neurovascular intact to bilateral upper and lower extremities. Sitting with hands behind head, and arms/elbows in the air and recumbent position. Const Vital Signs: 04/17/24 13:13 Temperature 97.4 F L Temperature Source Temporal Pulse Rate 70 Respiratory Rate 16 Blood Pressure 135/84 H Blood Pressure Mean 101 Pulse Ox 96 Oxygen Delivery Method Room Air MDM MDM MDM Narrative Medical decision making narrative: Differential diagnosis includes but not limited to intercostal muscle strain versus rib fracture versus thoracic radiculopathy. I have low suspicion for ureterolithiasis because the history and physical does not support this. His pulse ox is 96% on room air without evidence of hypoxia so I doubt pneumonia or pulmonary embolism. He is PERC negative as well. Urinalysis will be obtained as well as right-sided rib x-rays. I obtained a urinalysis and reviewed it, there are 0-5 WBCs and 0-5 RBCs. I do not feel he needs CT flank imaging, and I do not feel antibiotics are indicated. X-rays of the right ribs obtained and interpreted by myself independently shows no pneumonia, no pneumothorax, no rib fracture. I reviewed the radiology report which confirms my independent interpretation. At this point in time, I do feel he can be discharged to follow-up with his primary care provider again. He will continue acetaminophen and he was written for a muscle relaxer yesterday when he was seen by them. I feel he can be discharged to follow-up. Return instructions were reviewed. Disposition is discharged home in stable condition. History & Record Review Discussion w/independent historian: Patient Lab Data Attestation: I reviewed the patient's lab results. Labs: Laboratory Results - last 24 hr 04/17/24 16:06 Urine Color Yellow Urine Clarity Clear Urine pH 5.0 Ur Specific Donie 1.020 Urine Protein 30 H Urine Glucose (UA) Normal Urine Ketones Negative Urine Occult Blood Negative Urine Nitrite Negative Urine Bilirubin Negative Urine Urobilinogen Normal Ur Leukocyte Esterase Negative Urine RBC 0-5 SEEN Urine WBC 0-5 SEEN Ur Squamous Epith Cells 0 SEEN Urine Bacteria 0 SEEN Urine Mucus 0 SEEN Radiography Diagnostic Testing: Clinical Impression(s) from Imaging Studies Ribs w/Chest X-Ray 04/17/24 15:30 IMPRESSION: RIBS: Normal x-ray examination of the right ribs. CHEST: Atherosclerotic calcification of the aortic arch. Electronically Signed: Cory Moreira MD at 15:48 EDT , Discharge Plan Triage Chief Complaint: Back ED Provider: Stan Gutiérrez Dx/Rx/DC Orders Clinical Impression: Acute right-sided thoracic back pain, Intercostal muscle pain Instructions: ED Back Pain (Acute or Chronic), ED Pain, Acute, Uncertain Cause Prescriptions: No Action tamsulosin 0.4 MG capsule 0.4 mg PO DAILY Multivitamin 50 Plus 1 EACH tablet 1 ea PO DAILY cetirizine [Zyrtec] 10 mg Tablet 10 mg PO DAILY ferrous sulfate [iron] 325 mg (65 mg iron) Tablet 325 mg PO DAILY rosuvastatin 5 mg tablet 5 mg PO DAILY methylphenidate HCl 10 mg tablet 10 mg PO DAILY Patient Comments: TAKE 1 TABLET BY MOUTH EVERY DAY MIDDAY methylphenidate HCl 20 mg tablet extended release 20 mg PO DAILY Patient Comments: TAKE 1 TABLET BY MOUTH EVERY DAY doxycycline hyclate 100 mg capsule 100 mg PO BID Qty: 20 0RF Primary Care Provider: Claire Guo Referrals: Claire Guo MD [Primary Care Provider] - 1 Week if not improving Activity Restrictions/Additional Instructions: Continue taking the acetaminophen, and start taking the muscle relaxer you are prescribed by the nurse practitioner at your primary care provider's office. Return with new or worsening symptoms. Print Language: Mauritanian Disposition Disposition: Home, Self Care
--- NOTE | 2024-04-17 15:30 | RAD_ITS ---
STUDY: X-RAY - UNILATERAL RIBS ( RIGHT ) WITH CHEST REASON FOR EXAM: Male, 73 years old. Pain. TECHNIQUE - RIBS: 4 views of the right ribs. TECHNIQUE - CHEST: Single PA view of the chest. COMPARISON: None. FINDINGS - RIBS: Normal visualized right ribs without a demonstrated fracture. FINDINGS - CHEST: The lungs are clear and expanded. There is no demonstrated pleural abnormality. Normal size heart. Normal mediastinum and nathan. Normal visualized pulmonary arteries. There is atherosclerotic calcification of the aortic arch. Normal visualized thoracic spine. Normal visualized ribs, clavicles, and shoulders. There is no demonstrated abnormality of the visualized soft tissue structures of the upper abdomen. RAD/Ribs Uni Min 3V w/PA Chest IMPRESSION: RIBS: Normal x-ray examination of the right ribs. CHEST: Atherosclerotic calcification of the aortic arch. Electronically Signed: Cory Moreira MD at 15:48 EDT ,
[2024-04-17 16:15] LABS: Bacteria 0 SEEN /hpf (None Seen); Mucous, Urine 0 SEEN /hpf (<or=2+); Squamous Epithelial Cells - UA 0 SEEN /hpf (0-5)
[2024-04-17 16:21] LABS: Color, Urine Yellow (Yellow); Glucose, Dipstick Normal (Normal); Ketone-Dipstick Negative (Negative); Leukocyte Esterase-Dipstick Negative /ul (Negative); Nitrite-Dipstick Negative (Negative); Occult Blood-Urine Negative /ul (Negative); Protein-Dipstick 30 mg/dl (Negative); Urine Bilirubin Dipstick Negative (Negative); Urine Clarity Clear (Clear); Urine Urobilinogen Normal (Normal)
[2024-04-17 16:28] LABS: Red Blood Cells-Urine 0-5 SEEN /hpf (0-5); White Blood Cells 0-5 SEEN /hpf (0-5)
[2024-04-17 16:47] VITALS: BP 132/78; PULSE 87; RESP 16; TEMP 36.4; O2SAT 96
== END 2024-04-17 16:47 | disposition home or self-care (01) ==
PROVIDERS: Emergency Provider Emergency Medicine; PCP Internal Medicine; Visit Provider Emergency Medicine
DX: M54.6 Pain in thoracic spine (principal); R07.82 Intercostal pain; Z90.49 Acquired absence of other specified parts of digestive tract; E78.5 Hyperlipidemia, unspecified; G47.30 Sleep apnea, unspecified
CPT/HCPCS: 71101; 81001; 99282

== ENCOUNTER 2024-11-10 18:37 | Emergency (ER) | payer MEDICARE, SELFPAY ==
[2024-11-10 18:38] VITALS: BP 133/86; PULSE 64; RESP 16; TEMP 36.6; O2SAT 97; BMI 32.6
--- NOTE | 2024-11-10 19:40 | EX.ED.GENINJ ---
HPI <DAVIS Alicea - Last Filed: 11/10/24 20:33> History of Present Illness Chief Complaint: Laceration Narrative Narrative: Patient presenting today with a laceration to his right wrist that he sustained this evening while working on a lawnmower. He reports that he accidentally hit his wrist against the blade causing a small laceration. His tetanus is up-to-date. He denies any other injury. He is right-handed. PFSH <DAVIS Alicea - Last Filed: 11/10/24 20:33> [facility] Medical History Sleep apnea Hyperlipemia Home Medications ?Medication ?Instructions ?Recorded ?Last Taken ?Type [id number] 1 ea PO DAILY 09/03/15 Unknown History tablet (Multivitamin 50 Plus tablet) tamsulosin 0.4 mg capsule 0.4 mg PO DAILY 09/03/15 Unknown History cetirizine 10 mg tablet (Zyrtec) 10 mg PO DAILY 02/22/22 Unknown History ferrous sulfate 325 mg (65 mg 325 mg PO DAILY 02/22/22 Unknown History iron) tablet (iron) rosuvastatin 5 mg tablet 5 mg PO DAILY 02/22/22 Unknown History methylphenidate HCl 20 mg 20 mg PO DAILY 01/30/24 Unknown History tablet,extended release albuterol sulfate 90 mcg/actuation 2 puff inhalation Q4H PRN PRN 11/10/24 Unknown History aerosol inhaler wheezing Allergy/AdvReac Type Severity Reaction Status Date / Time codeine AdvReac Nausea/Vom/ Verified 11/10/24 18:39 Diarrhea Family History no significant family his Surgical History History of tonsillectomy History of cholecystectomy Social History household members: spouse Smoking Status: Never smoker substance use type: does not use ROS <DAVIS Alicea - Last Filed: 11/10/24 20:33> ROS ED Constitutional Constitutional ED: Denies chills or fever(s) Cardiovascular Cardiovascular: Denies chest pain Respiratory/Chest Respiratory/Chest: Denies dyspnea Gastrointestinal Gastrointestinal: Denies abdominal pain Musculoskeletal Musculoskeletal: Denies arthralgias Integumentary Reports laceration Neurologic Neurologic: Denies paresthesias EXAM <DAVIS Alicea - Last Filed: 11/10/24 20:33> Physical Exam Const Vital Signs: 11/10/24 18:38 Temperature 97.9 F Temperature Source Temporal Pulse Rate 64 Respiratory Rate 16 Blood Pressure 133/86 H Blood Pressure Mean 101 Pulse Ox 97 Oxygen Delivery Method Room Air Positive well nourished, well developed and no apparent distress General Appearance ED: well developed HEENT Reports normocephalic and head/scalp atraumatic Mouth ED: Yes moist mucous membranes normal Eyes PERRL and EOMs intact bilaterally Neck full ROM and supple Chest Wall inspection of chest normal Resp normal respiratory effort and clear to auscultation bilaterally Cardio regular rate and regular rhythm Back/Spine normal ROM and normal to inspection Extremity full ROM Extremity Narrative: 1 cm partial-thickness linear laceration to the dorsal ulnar aspect of the right wrist, full range of motion to the right wrist, right radial pulse 2+, good cap refill, sensation intact. Neuro moves all extremities, no focal motor deficits and no sensory deficits noted Sensorium / Orientation: awake and alert Psych mental status grossly normal and thought process normal Skin Skin Narrative: Aside from laceration to the right wrist no other rashes or lesions noted <Dr. Luis Miguel De La Rosa, DO - Last Filed: 11/10/24 20:43> Physical Exam Const Vital Signs: 11/10/24 18:38 Temperature 97.9 F Temperature Source Temporal Pulse Rate 64 Respiratory Rate 16 Blood Pressure 133/86 H Blood Pressure Mean 101 Pulse Ox 97 Oxygen Delivery Method Room Air PROC <DAVIS Alicea - Last Filed: 11/10/24 20:33> Procedures Lacerations Laceration: Length: 1 cm Depth: Sub Q Shape: Linear Prep: Chlorhexadine Laceration repair: Irrigated, Lidocaine, Skin sutures and Wound explored Number of Sutures/Leonel: 3 Suture Information: Ethilon, Simple and 4-0 MDM <DAVIS Alicea - Last Filed: 11/10/24 20:33> [facility] MDM Narrative Medical decision making narrative: Patient presenting today due to a laceration to his right wrist that he got this evening while he was working on a lawnmower and hit his wrist against the blade on accident. His tetanus is up-to-date. This will require suture repair. He otherwise has full range of motion to his right wrist and is neurovascularly intact. He tolerated procedure well. Wound care instructions were discussed with him. Wound was then bandaged with bacitracin ointment after suturing. He is to have sutures removed in 7 days and will be discharged home in stable condition. <Dr. Luis Miguel De La Rosa, DO - Last Filed: 11/10/24 20:43> [facility] Treatment and Re-Evaluation Narrative: I have personally performed a face to face assessment of the patient and have reviewed the MARTÍN Note. I performed a substantive portion of the visit including all aspects of the following. My krause findings include: History: Patient presents with a laceration to his right wrist that occurred today. Patient states he cut his hand on the edge of a piece of metal while cleaning his mower. Patient describes the pain as burning. Patient denies any paresthesias or weakness. Patient states his last tetanus was within the last 5 years. Exam: Vital signs are stable. Patient is afebrile. Patient is in no acute distress. There is a 1 cm full-thickness linear laceration over the dorsal aspect of the right wrist. There is moderate gapping of the wound margins. There are no foreign bodies noted. There is no active bleeding noted. Sensation was intact to light touch in the radial, median, and ulnar areas. Strength is 5/5 in the radial, median, and ulnar areas. Radial pulses are equal bilaterally. There is good range of motion. Medical Decision Making: Patient was advised of the need for laceration repair. Patient is agreeable with this. The wound was cleaned and irrigated with copious amounts of normal saline. The wound was repaired by the MARTÍN under my supervision. Patient tolerated the procedure well. Patient was instructed to keep wound clean and dry. Patient was instructed to follow-up with his primary care physician in 7 days for wound recheck and suture removal. Patient understood and was agreeable with the plan. All questions were answered. Discharge Plan Triage Chief Complaint: Laceration ED Midlevel Provider: [facility] Go ED Provider: Luis Miguel De La Rosa Dx/Rx/DC Orders Prescriptions: No Action tamsulosin 0.4 MG capsule 0.4 mg PO DAILY Multivitamin 50 Plus 1 EACH tablet 1 ea PO DAILY cetirizine [Zyrtec] 10 mg Tablet 10 mg PO DAILY ferrous sulfate [iron] 325 mg (65 mg iron) Tablet 325 mg PO DAILY rosuvastatin 5 mg tablet 5 mg PO DAILY methylphenidate HCl 20 mg tablet extended release 20 mg PO DAILY Patient Comments: TAKE 1 TABLET BY MOUTH EVERY DAY albuterol sulfate 90 mcg/actuation HFA aerosol inhaler 2 puff inhalation Q4H PRN PRN (Reason: wheezing) Primary Care Provider: Claire Guo Referrals: Claire Guo MD [Primary Care Provider] - Print Language: Belizean
--- NOTE | 2024-11-10 20:28 | ED.RN ---
Per Dr. De La Rosa , this RN, and DAVIS Go, noticed bed-bugs at end of care when patient was being discharged. EVS notified to deep clean room.
[2024-11-10] MEDS: Lidocaine 1% (20 ml mdv) 20 ML Vial 10 ML INFILT (20:31)
== END 2024-11-10 20:32 | disposition home or self-care (01) ==
PROVIDERS: Emergency Provider Emergency Medicine; PCP Internal Medicine; Visit Provider Emergency Medicine
DX: S61.511A Laceration without foreign body of right wrist, initial encounter (principal); E78.5 Hyperlipidemia, unspecified; W27.1XXA Contact with garden tool, initial encounter; Z90.49 Acquired absence of other specified parts of digestive tract
CPT/HCPCS: 12001; 99282

== ENCOUNTER → 2024-11-13 | Outpatient (CLI) | payer MEDICARE, SELFPAY ==
[2024-11-13 17:03] LABS: PSA,Total - Annual Screen 2.68 ng/mL (0.02-4.00)
== END | disposition home or self-care (01) ==
LOC: LAB 15:00
PROVIDERS: PCP Internal Medicine; Referring Provider Urology; Visit Provider Urology
DX: Z12.5 Encounter for screening for malignant neoplasm of prostate (principal)
CPT/HCPCS: 36415; 84153; G0103